=== PATIENT | female | born 1975 | race Caucasian/White ===

== ENCOUNTER → 2020-11-03 | Outpatient (CLI) | payer OTHER ==
[2020-11-03 07:41] LABS: HCT 39.3 % (34.0-46.0); HGB 13.2 gm/dL (11.4-16.0); MCH 33.4 pg (25.0-35.0); MCHC 33.5 g/dL (31.0-37.0); MCV 99.7 fL (80.0-100.0); Mean Platelet Volume 7.6; Platelet Count 211 k/uL (150-450); RBC 3.94 m/uL (3.80-5.40); RDW 13.7 % (11.5-15.5); WBC 4.6 k/uL (3.8-10.6)
[2020-11-03 08:10] LABS: T4, Free (Free Thyroxine) 0.83 ng/dL (0.78-2.19)
[2020-11-03 11:05] LABS: Chol/HDL Ratio 2.42; LDL Cholesterol,Calculated 91.6 mg/dL (0.0-131.0); VLDL Calculation 12.4 mg/dL (5.00-40.00)
[2020-11-03 11:32] LABS: Follicle Stimulating Hormone 157.1 mIU/mL
--- NOTE | 2020-11-13 14:59 | MM ---
Reason for exam: screening (asymptomatic). Last mammogram was performed 2 years and 1 month ago. History: Patient had first child at age 33. Physical Findings: A clinical breast exam by your physician is recommended on an annual basis and results should be correlated with mammographic findings. MG 3D Screening Mammo W/Cad Bilateral CC and MLO view(s) were taken. Prior study comparison: October 11, 2018, mammogram, performed at [place]. The breast tissue is heterogeneously dense. This may lower the sensitivity of mammography. ASSESSMENT: Negative, BI-RAD 1 RECOMMENDATION: Routine screening mammogram of both breasts in 1 year.
== END | disposition home or self-care (01) ==
LOC: RADMAMWWP 07:27
PROVIDERS: ATTEND Obstetrics & Gynecology Obstetrics
DX: Z12.31 Encounter for screening mammogram for malignant neoplasm of breast (principal)
CPT/HCPCS: 77063; 77067; 80061; 83001; 84439; 84443; 85027